=== PATIENT | female | born 1975 | race Caucasian/White ===

== ENCOUNTER → 2020-12-05 | Outpatient (CLI) | payer OTHER | LOC: M.RAD 15:01 | PROVIDERS: ATTEND Nurse Practitioner | DX: Z12.31 Encounter for screening mammogram for malignant neoplasm of breast (principal); N64.89 Other specified disorders of breast ==

== ENCOUNTER → 2020-12-13 | Outpatient (CLI) | payer OTHER | LOC: M.ULTRA 13:47 | PROVIDERS: ATTEND Nurse Practitioner | DX: N63.10 Unspecified lump in the right breast, unspecified quadrant (principal); N63.20 Unspecified lump in the left breast, unspecified quadrant; R92.8 Other abnormal and inconclusive findings on diagnostic imaging of breast ==

== ENCOUNTER 2021-05-12 14:35 | Emergency (ER) | payer OTHER ==
[~2021-05-12] VITALS: Ht 154.9 cm; Wt 87.1 kg
[2021-05-12 14:40] VITALS: BP 149/73
[2021-05-12] MEDS ORDERED: OMEPRAZOLE 20 M20 M1 PO (14:42)
[2021-05-12] MEDS ORDERED: XYZAL5 MG PO (14:43)
== END 2021-05-12 15:56 | disposition home or self-care (01) ==
LOC: M.ERS 14:35
DX: S93.401A Sprain of unspecified ligament of right ankle, initial encounter (principal); Z79.899 Other long term (current) drug therapy; X50.1XXA Overexertion from prolonged static or awkward postures, initial encounter; Y93.89 Activity, other specified; Y92.89 Other specified places as the place of occurrence of the external cause; Y99.8 Other external cause status